=== PATIENT | female | born 1980 | race Hispanic/Latino ===

== ENCOUNTER 2021-03-06 16:01 | Observation (INO) | payer BC ==
[~2021-03-06] VITALS: Ht 160 cm; Wt 74.8 kg
[2021-03-06 16:40] VITALS: BP 131/73
[2021-03-06 17:28] LABS: HEMATOCRIT 22.8 % (36-48)
[2021-03-06] MEDS ORDERED: SODIUM CHLORIDE 0.9% 1000ML 1,000 ML IV SCH (18:15)
[2021-03-06 18:47] VITALS: BP 136/77
[2021-03-07 00:15] VITALS: BP 108/65
[2021-03-07 04:26] VITALS: BP 110/64
[2021-03-07 06:32] LABS: HEMATOCRIT 29.7 % (36-48)
[2021-03-07 07:29] VITALS: BP 117/62
== END 2021-03-07 09:35 | disposition home or self-care (01) ==
LOC: WSH 16:01
PROVIDERS: ADMIT Obstetrics & Gynecology; ATTEND Obstetrics & Gynecology
DX: D64.9 Anemia, unspecified (principal)
CPT/HCPCS: 36415 ×2; 36430 ×2; 85014 ×2; 85018 ×2; 86850; 86900; 86901; 86922; G0378 ×12; J7030; P9016 ×3

== ENCOUNTER 2021-04-09 05:29 | Observation (INO) | payer BC ==
[2021-04-08 11:49] LABS: BASOPHILS % (AUTO) 0.6 % (0.0-5.0); EOSINOPHILS % (AUTO) 1.9 % (0.0-8.0); HEMATOCRIT 32.6 % (36-48); LYMPHOCYTES % (AUTO) 34.4 % (21.0-51.0); MEAN CORPUSCULAR HEMOGLOBIN 23.1 pg (27.0-33.0); MEAN CORPUSCULAR HGB CONC 29.8 g/dL (32.0-36.0); MEAN CORPUSCULAR VOLUME 77.6 fL (79-99); MONOCYTES % (AUTO) 8.5 % (3.0-13.0); NEUTROPHILS % (AUTO) 54.6 % (40.0-77.0); PLATELET COUNT (AUTO) 301 K/uL (130-400); WHITE BLOOD COUNT (AUTO) 5.3 K/uL (4.8-10.8)
[2021-04-08 15:33] VITALS: BP 125/67
[2021-04-09] VITALS (24 sets, daily range): BP systolic 109–137; BP diastolic 52–76
[~2021-04-09] VITALS: Ht 160 cm; Wt 75.7 kg
[2021-04-09] MEDS ORDERED: CLINDAMYCIN 600 MG/D5% WATER 50 ML IV ONE (05:49)
[2021-04-09] MEDS ORDERED: LACTATED RINGERS 1000ML 1,000 ML IV ONE (05:49)
[2021-04-09] MEDS ORDERED: MIDAZOLAM HCL 1 MG/ML 2ML VIAL ONE (06:35)
[2021-04-09] MEDS ORDERED: ROCURONIUM 10MG/1ML SYR 10 MG/ML ML ONE (06:35)
[2021-04-09] MEDS ORDERED: PROPOFOL 10 MG/ML 20ML VIAL IV ONE (06:35)
[2021-04-09] MEDS ORDERED: LIDOCAINE PF 100MG/5ML (2%) SYRINGE 5ML ONE (06:35)
[2021-04-09] MEDS ORDERED: SUCCINYLCHOLINE CHLORIDE 20 MG/ML 10 ML VIAL ONE (06:35)
[2021-04-09] MEDS ORDERED: ONDANSETRON HCL 4 MG/2 ML VIAL ONE (06:37)
[2021-04-09] MEDS ORDERED: SODIUM CHLORIDE 0.9% 10 ML VIAL ONE (06:37)
[2021-04-09] MEDS ORDERED: DEXAMETHASONE SOD PHOSPHATE 4 MG/ML 1ML VIAL ONE (06:37)
[2021-04-09] MEDS ORDERED: PHENYLEPHRINE HCL 10 MG/ML 1ML VIAL IV ONE (06:37)
[2021-04-09] MEDS ORDERED: LEVOFLOXACIN 500 MG/D5W 100 ML 100 ML ONE (06:38)
[2021-04-09] MEDS ORDERED: FENTANYL CITRATE PF 50 MCG/1 ML 2ML VIAL ONE (06:38)
[2021-04-09] MEDS ORDERED: LACTATED RINGERS 1000ML 1,000 ML IV SCH (08:00)
[2021-04-09] MEDS ORDERED: CEFAZOLIN SODIUM 1 GM VIAL IVP ONE (08:00)
[2021-04-09] MEDS ORDERED: NEOSTIGMINE 5MG/5ML SYR IV ONE (08:40)
[2021-04-09] MEDS ORDERED: GLYCOPYRROLATE 1 MG/5 ML SYRINGE ONE (08:40)
[2021-04-09] MEDS ORDERED: MEPERIDINE-PF 25 MG/ML SYG ONE ×2 (09:06→09:15)
[2021-04-09] MEDS ORDERED: BISACODYL 10 MG SUPP.RECT RC PRN (10:15)
[2021-04-09] MEDS ORDERED: ONDANSETRON HCL 4 MG/2 ML VIAL IVP PRN (10:15)
[2021-04-09] MEDS ORDERED: PROMETHAZINE HCL 25 MG/ML 1ML AMPULE IM PRN ×2 (10:15)
[2021-04-09] MEDS ORDERED: IBUPROFEN 600 MG TABLET PO PRN (10:15)
[2021-04-09] MEDS ORDERED: MEPERIDINE-PF 75 MG/ML SYG IM PRN (10:15)
[2021-04-09] MEDS: DEXTROSE 5 %-0.45 % NACL 1,000 ML IV PRN ×2 (10:49→18:47)
[2021-04-09] MEDS: DOCUSATE SODIUM 100 MG CAP PO PRN (19:38)
[2021-04-09] MEDS: ACETAMINOPHEN-CODEINE 300/30MG TAB PO PRN (19:38)
[2021-04-09] MEDS: SIMETHICONE 80 MG TAB.CHEW PO PRN (19:38)
[2021-04-10] MEDS ORDERED: HYDROCODONE/ACETAMINOPHEN 5/325 MG TAB PO PRN (00:15)
[2021-04-10] MEDS: ACETAMINOPHEN-CODEINE 300/30MG TAB PO PRN (02:04)
[2021-04-10] MEDS: DEXTROSE 5 %-0.45 % NACL 1,000 ML IV PRN (02:05)
[2021-04-10 03:07] VITALS: BP 133/71
[2021-04-10 06:36] LABS: HEMATOCRIT 31.5 % (36-48); MEAN CORPUSCULAR HEMOGLOBIN 23.2 pg (27.0-33.0); MEAN CORPUSCULAR HGB CONC 29.8 g/dL (32.0-36.0); MEAN CORPUSCULAR VOLUME 77.6 fL (79-99); PLATELET COUNT (AUTO) 321 K/uL (130-400); RED BLOOD CELL COUNT(AUTO) 4.06 MIL/uL (4.00-5.50); WHITE BLOOD COUNT (AUTO) 8.5 K/uL (4.8-10.8)
[2021-04-10 07:35] VITALS: BP 130/72
[2021-04-10] MEDS: DOCUSATE SODIUM 100 MG CAP PO PRN (09:43)
[2021-04-10] MEDS: SIMETHICONE 80 MG TAB.CHEW PO PRN ×2 (09:43→12:40)
[2021-04-10 11:55] VITALS: BP 128/72
[2021-04-10 16:22] VITALS: BP 117/60
== END 2021-04-10 17:05 | disposition home or self-care (01) ==
LOC: DAH 05:29 → DAHIP 05:30 → DAH 05:30 → OBSVTOIN 05:30 → INTOOBSV 05:30 → WSH 09:55
PROVIDERS: ADMIT Obstetrics & Gynecology; ATTEND Obstetrics & Gynecology
DX: D25.9 Leiomyoma of uterus, unspecified (principal); Z20.822 Contact with and (suspected) exposure to COVID-19; N92.1 Excessive and frequent menstruation with irregular cycle; N84.0 Polyp of corpus uteri; K46.9 Unspecified abdominal hernia without obstruction or gangrene; D50.9 Iron deficiency anemia, unspecified; Z88.0 Allergy status to penicillin
CPT/HCPCS: 36415 ×2; 58263; 85025; 85027; 86850; 86900; 86901; 87635; 96361 ×2; 96372; 96374; A4215; A4221; A4222; A4223 ×2; A4351; A4510; A4600; A4606; A4663; A6260; C9803; G0378 ×34; J0330; J1100; J1956; J2001; J2175 ×3; J2250; J2370; J2405 ×2; J2550; J2704; J2710; J3010; J3490 ×2; J7120 ×2